=== PATIENT | female | born 1945 | race Caucasian/White ===

== ENCOUNTER 2023-06-08 19:11 | Emergency (ER) | payer BC ==
[~2023-06-08] VITALS: Ht 157.5 cm; Wt 88.5 kg
[2023-06-08 19:11] VITALS: BP_SYST 169; PULSE 75; RESP 22; TEMP 97.4; O2SAT 96
[~2023-06-08 19:11] MED LIST: ATEN50TA PO; FAMO20TA8 PO; GLIP10TA21 PO; HYDR12.55; LOSA1TAB37 PO; MECL-292 PO; METF1000 PO
[2023-06-08] MEDS ORDERED: KETOROLAC TROMETHAMINE 60 MG/2 ML VIAL IM ONE (19:30)
[2023-06-08] MEDS ORDERED: HYDROcodone/ACETAMIN 5-325 MG TAB (NORCO/ VICODIN) PO ONE (20:30)
[2023-06-08] MEDS ORDERED: IBUP-1969 PO (20:31)
[2023-06-08] MEDS ORDERED: OXYC-128 PO (20:31)
[2023-06-08 22:35] VITALS: BP_SYST 152; PULSE 78; RESP 18; TEMP 98.3; O2SAT 98
== END 2023-06-08 22:35 | disposition home or self-care (01) ==
LOC: SED 19:11
DX: S42.212A Unspecified displaced fracture of surgical neck of left humerus, initial encounter for closed fracture (principal); E11.9 Type 2 diabetes mellitus without complications; I10 Essential (primary) hypertension; E78.5 Hyperlipidemia, unspecified; Z79.899 Other long term (current) drug therapy; W18.30XA Fall on same level, unspecified, initial encounter; Y93.89 Activity, other specified; Y92.89 Other specified places as the place of occurrence of the external cause; Y99.8 Other external cause status
CPT/HCPCS: 99284; 73030; 73060; 73090; 96372; J1885

== ENCOUNTER 2024-05-26 10:48 | Inpatient (IN) | payer BC ==
[~2024-05-26] VITALS: Ht 154.9 cm; Wt 93.0 kg
[~2024-05-26 10:48] MED LIST changes: +IBUP-1969 PO; +OXYC-128 PO
[2024-05-26 11:06] VITALS: BP_SYST 166; PULSE 153; RESP 20; TEMP 96.5; O2SAT 99
[2024-05-26 11:33] VITALS: BP_SYST 166; PULSE 156; RESP 24; TEMP 98.1; O2SAT 97
[2024-05-26 11:34] LABS: BASOPHILS # (AUTO) 0.1 K/uL (0.0-0.2); BASOPHILS % (AUTO) 0.9 % (0.0-2.0); EOSINOPHILS # (AUTO) 0.1 K/uL (0.0-0.4); EOSINOPHILS % (AUTO) 1.8 % (0.0-4.0); HEMOGLOBIN 12.8 g/dL (12.0-16.0); LYMPHOCYTES # (AUTO) 2.3 K/uL (1.0-5.5); LYMPHOCYTES % (AUTO) 34.7 % (20.5-51.5); MEAN CORPUSCULAR HEMOGLOBIN 32 pg (27-31); MEAN CORPUSCULAR HGB CONC 34 % (32-36); MEAN CORPUSCULAR VOLUME 95 fL (79.0-98.0); MONOCYTES # (AUTO) 0.7 K/uL (0.0-1.0); MONOCYTES % (AUTO) 10.1 % (1.7-9.3); NEUTROPHILS # (AUTO) 3.5 K/uL (1.8-7.7); NEUTROPHILS % (AUTO) 52.5 % (40.0-70.0); PLATELET COUNT (AUTO) 213 K/uL (130-430); RED BLOOD CELL COUNT(AUTO) 3.99 MIL/uL (4.2-6.2); WHITE BLOOD COUNT (AUTO) 6.7 K/uL (4.8-10.8)
[2024-05-26 11:52] LABS: PROTHROMBIN TIME 10.4 SECS (9.5-12.5)
[2024-05-26 11:54] LABS: ANION GAP 10 (5-15); CALCIUM 9.3 mg/dL (8.4-11.0); CARBON DIOXIDE 25 mmol/L (23-29); CHLORIDE 109 mmol/L (98-107); CREATINE KINASE, TOTAL 63 U/L (26-192); CREATININE 1.13 mg/dL (0.55-1.30); GLUCOSE 173 mg/dL (74-106); POTASSIUM 4.2 mmol/L (3.5-5.1); SODIUM SERUM 144 mmol/L (136-145); UREA NITROGEN, BLOOD 19 mg/dL (8-21)
[2024-05-26 12:27] LABS: BILIRUBIN,URINE NEGATIVE (NEGATIVE); BLOOD, URINE NEGATIVE (NEGATIVE); COLOR,URINE YELLOW (YELLOW); GLUCOSE,URINE NEGATIVE (NEGATIVE); KETONES,URINE 1+ (NEGATIVE); LEUKOCYTE ESTERASE ,URINE NEGATIVE (NEGATIVE); NITRITE, URINE NEGATIVE (NEGATIVE); PROTEIN URINE NEGATIVE (NEGATIVE); UROBILINOGEN,URINE 0.2 (0.2-1.0)
[2024-05-26 12:43] LABS: CLARITY/URINE SLIGHTLY HAZY (CLEAR)
[2024-05-26 12:45] LABS: BACTERIA,URINE RARE /HPF (None Seen); RBC,URINE 0-3 /HPF (0-3); WBC,URINE 0-3 /HPF (0-3)
[2024-05-26] MEDS ORDERED: LORazepam 2 MG/ML VIAL IVP PRN (17:45)
[2024-05-26] MEDS ORDERED: ACETAMINOPHEN 325 MG TABLET PO PRN (17:45)
[2024-05-26] MEDS ORDERED: IBUPROFEN 600 MG TABLET PO PRN (17:45)
[2024-05-26] MEDS ORDERED: ATEN-167 PO (18:25)
[2024-05-26 20:00] VITALS: BP_SYST 133; PULSE 72; RESP 18; TEMP 97.2
[2024-05-26] MEDS: NORMAL SALINE 5 ML DISP.SYRIN IVF SCH (22:00)
[2024-05-27] VITALS: BP_SYST 136; PULSE 75; RESP 18; TEMP 97; O2SAT 98
[2024-05-27 06:49] LABS: BASOPHILS % (AUTO) 0.5 % (0.0-2.0); EOSINOPHILS # (AUTO) 0.2 K/uL (0.0-0.4); EOSINOPHILS % (AUTO) 2.2 % (0.0-4.0); HEMATOCRIT 36.4 % (36-48); HEMOGLOBIN 12.1 g/dL (12.0-16.0); LYMPHOCYTES # (AUTO) 2.4 K/uL (1.0-5.5); LYMPHOCYTES % (AUTO) 32.5 % (20.5-51.5); MEAN CORPUSCULAR HEMOGLOBIN 32 pg (27-31); MEAN CORPUSCULAR HGB CONC 33 % (32-36); MEAN CORPUSCULAR VOLUME 96 fL (79.0-98.0); MONOCYTES # (AUTO) 0.8 K/uL (0.0-1.0); MONOCYTES % (AUTO) 10.7 % (1.7-9.3); NEUTROPHILS % (AUTO) 54.1 % (40.0-70.0); PLATELET COUNT (AUTO) 206 K/uL (130-430); RED CELL DISTRIBUTION WIDTH 14.1 % (9.0-15.0); WHITE BLOOD COUNT (AUTO) 7.4 K/uL (4.8-10.8)
[2024-05-27 07:50] VITALS: BP_SYST 149; PULSE 90; RESP 16; TEMP 97.4; O2SAT 98
[2024-05-27 08:05] LABS: ANION GAP 9 (5-15); CALCIUM 8.8 mg/dL (8.4-11.0); CARBON DIOXIDE 26 mmol/L (23-29); CHLORIDE 110 mmol/L (98-107); CREATININE 0.74 mg/dL (0.55-1.30); GLUCOSE 115 mg/dL (74-106); POTASSIUM 3.9 mmol/L (3.5-5.1); SODIUM SERUM 145 mmol/L (136-145); UREA NITROGEN, BLOOD 12 mg/dL (8-21)
[2024-05-27] MEDS ORDERED: LOSARTAN/HYDROCHLOROTHIAZIDE TAB (HYZAAR 50-12.5 MG) PO SCH (09:00)
[2024-05-27] MEDS: HYDROCHLOROTHIAZIDE 12.5 MG CAPSULE (HCTZ) PO SCH (09:21)
[2024-05-27] MEDS: glipiZIDE XL 5 MG TAB ( GLUCOTROL XL) PO SCH (09:22)
[2024-05-27] MEDS: LOSARTAN POTASSIUM 50 MG TABLET (COZAAR) PO SCH (09:22)
[2024-05-27] MEDS: FAMOTIDINE 20 MG TABLET PO SCH (09:22)
[2024-05-27] MEDS: ATENOLOL 50 MG TABLET (TENORMIN) PO SCH (09:23)
[2024-05-27] MEDS: ONDANSETRON HCL 4 MG/2 ML VIAL IVP PRN (09:23)
[2024-05-27] MEDS: OXYCODONE/ACETAMINOPHEN 5-325 TABLET PO PRN (09:24)
[2024-05-27 12:13] VITALS: BP_SYST 110; PULSE 72; RESP 16; TEMP 98.3; O2SAT 98
[2024-05-27 16:00] VITALS: BP_SYST 125; PULSE 72; RESP 16; TEMP 98; O2SAT 96
[2024-05-27] MEDS: DILTIAZEM HCL 120 MG CAP.SR.24H PO ONE (18:09)
[2024-05-27 20:00] VITALS: BP_SYST 135; PULSE 72; RESP 20; TEMP 98.4; O2SAT 96
[2024-05-28 07:36] LABS: BASOPHILS % (AUTO) 0.4 % (0.0-2.0); EOSINOPHILS # (AUTO) 0.2 K/uL (0.0-0.4); EOSINOPHILS % (AUTO) 2.8 % (0.0-4.0); HEMATOCRIT 36.1 % (36-48); HEMOGLOBIN 12.2 g/dL (12.0-16.0); LYMPHOCYTES # (AUTO) 1.8 K/uL (1.0-5.5); LYMPHOCYTES % (AUTO) 27.1 % (20.5-51.5); MEAN CORPUSCULAR HEMOGLOBIN 32 pg (27-31); MEAN CORPUSCULAR HGB CONC 34 % (32-36); MEAN CORPUSCULAR VOLUME 95 fL (79.0-98.0); MONOCYTES # (AUTO) 0.7 K/uL (0.0-1.0); MONOCYTES % (AUTO) 10.6 % (1.7-9.3); NEUTROPHILS % (AUTO) 59.1 % (40.0-70.0); PLATELET COUNT (AUTO) 199 K/uL (130-430); WHITE BLOOD COUNT (AUTO) 6.8 K/uL (4.8-10.8)
[2024-05-28 07:42] LABS: ALANINE AMINOTRANSFERASE 27 U/L (12-78); ALBUMIN 3.1 g/dL (3.4-4.8); ANION GAP 3 (5-15); ASPARTATE AMINOTRANSFERASE 25 U/L (10-37); CALCIUM 8.7 mg/dL (8.4-11.0); CARBON DIOXIDE 30 mmol/L (23-29); CHLORIDE 108 mmol/L (98-107); CREATININE 0.77 mg/dL (0.55-1.30); GLUCOSE 138 mg/dL (74-106); POTASSIUM 3.7 mmol/L (3.5-5.1); SODIUM SERUM 141 mmol/L (136-145); TOTAL BILIRUBIN 0.5 mg/dL (0.0-1.0); TOTAL PROTEIN, SERUM 6.6 g/dL (6.4-8.3); UREA NITROGEN, BLOOD 11 mg/dL (8-21)
[2024-05-28 07:50] VITALS: BP_SYST 112; PULSE 83; RESP 18; TEMP 97.8; O2SAT 97
[2024-05-28] MEDS: DILTIAZEM HCL 120 MG CAP.SR.24H PO SCH (09:09)
[2024-05-28] MEDS: metFORMIN HCL 500 MG TABLET PO SCH (09:10)
[2024-05-28 10:43] VITALS: O2SAT 100
[2024-05-28] MEDS: APIXABAN 2.5 MG TABLET PO ONE (13:35)
[2024-05-28] MEDS ORDERED: DILT120C89 PO (15:05)
[2024-05-28] MEDS ORDERED: APIX5TAB PO (15:05)
[2024-05-28 15:20] VITALS: BP_SYST 107; PULSE 67; RESP 18; TEMP 96.6; O2SAT 97
[2024-05-28] MEDS ORDERED: APIXABAN 2.5 MG TABLET PO SCH (21:00)
[2024-05-29] MEDS ORDERED: DILT120C89 PO (13:30)
[2024-05-29] MEDS ORDERED: APIX5TAB PO (13:30)
== END 2024-05-28 16:20 | disposition home or self-care (01) | DRG 309 ==
LOC: SED 10:48 → STU 16:13
PROVIDERS: ADMIT Preventive Medicine Preventive Medicine/Occupational Environmental Medicine; ATTEND Preventive Medicine Preventive Medicine/Occupational Environmental Medicine
DX: I47.10 Supraventricular tachycardia, unspecified (principal); R65.10 Systemic inflammatory response syndrome (SIRS) of non-infectious origin without acute organ dysfunction; K21.9 Gastro-esophageal reflux disease without esophagitis; E11.65 Type 2 diabetes mellitus with hyperglycemia; E78.5 Hyperlipidemia, unspecified; I10 Essential (primary) hypertension; Z79.899 Other long term (current) drug therapy; Z79.84 Long term (current) use of oral hypoglycemic drugs
CPT/HCPCS: 36415; 71045; 80048; 80053; 81000; 81001; 81015; 82550; 83880; 84484; 85025; 85610; 85730; 93005; 93306; 99285; G0378; J2405